=== PATIENT | male | born 1980 ===

== ENCOUNTER 2018-05-12 18:51 | Emergency (ER) | payer SELFPAY ==
[2018-05-12 18:59] VITALS: RESP 16
--- NOTE | 2018-05-12 18:59 | C.PDOC ---
History Of Present Illness 37 year old male presents to the ED complaining of intermittent headache for 2 days. Headache is gradual in onset, circumferential and vice-like. Also reports he has been unable to sleep for the last 2 nights secondary to increased stress in his life. Has had increased anxiety because of family and work issues. Associated left sided neck pain. 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 Has not taken any medication for pain. Denies any SI, HI, hallucinations, nausea, vomiting, weakness, numbness, fever, chills, vision changes, dizziness, abdominal pain, trauma/injury, or any other associated symptoms. Denies history of hypertension or history of similar headaches in the past. Time Seen by Provider: 05/12/18 18:59 Chief Complaint (Nursing): Headache History Per: Patient History/Exam Limitations: no limitations Onset/Duration Of Symptoms: Days (2) Current Symptoms Are (Timing): Still Present Associated Symptoms: Blurred Vision. denies: Nausea, Vomiting Past Medical History Reviewed: Historical Data, Nursing Documentation, Vital Signs Vital Signs: Last Vital Signs Temp 98 F 05/12/18 18:54 Pulse 83 05/12/18 18:54 Resp 16 05/12/18 18:54 BP 155/100 H 05/12/18 18:54 Pulse Ox 98 05/12/18 18:54 - Medical History PMH: No Chronic Diseases Surgical History: No Surg Hx Family History: States: No Known Family Hx - Social History Hx Tobacco Use: No Hx Alcohol Use: Yes Hx Substance Use: No - Immunization History Hx Tetanus Toxoid Vaccination: No Hx Influenza Vaccination: No Hx Pneumococcal Vaccination: No Review Of Systems Except As Marked, All Systems Reviewed And Found Negative. Constitutional: Negative for: Fever, Chills Eyes: Negative for: Vision Change ENT: Negative for: Throat Pain, Throat Swelling Cardiovascular: Negative for: Chest Pain, Palpitations, Light Headedness Respiratory: Negative for: Cough, Shortness of Breath Gastrointestinal: Negative for: Nausea, Vomiting, Abdominal Pain Musculoskeletal: Positive for: Neck Pain. Negative for: Back Pain Skin: Negative for: Rash, Bruising Neurological: Positive for: Headache. Negative for: Weakness, Numbness, Seizures, Dizziness Physical Exam - Physical Exam Appears: Well, Non-toxic, No Acute Distress Skin: Normal Color, Warm, Dry Head: Atraumatic, Normacephalic Eye(s): bilateral: Normal Inspection, PERRL, EOMI Ear(s): Bilateral: Normal Nose: Normal Oral Mucosa: Moist Throat: Normal, No Erythema, No Exudate Neck: Normal, Normal ROM, No Decreased ROM, No Midline Cervical Tenderness, Paracervical Tenderness (left sided with tenderness and spasm), Supple Lymphatic: Normal Exam Chest: Symmetrical Cardiovascular: Rhythm Regular Respiratory: Normal Breath Sounds, No Rales, No Rhonchi, No Wheezing Gastrointestinal/Abdominal: Soft, No Tenderness Back: Normal Inspection, No Vertebral Tenderness, No Paraspinal Tenderness Extremity: Normal ROM, Capillary Refill (<2s) Extremity: Bilateral: Atraumatic, Normal Color And Temperature, Normal ROM Pulses: Left Radial: Normal, Right Radial: Normal Neurological/Psych: Oriented x3, Normal Speech, Normal Cognition, Normal Cranial Nerves, No Cerebellar Signs, Normal Motor, Normal Sensation Gait: Steady ED Course And Treatment O2 Sat by Pulse Oximetry: 98 (RA) Pulse Ox Interpretation: Normal - CT Scan/US CT HEAD Other Rad Studies (CT/US): Read By Radiologist, Radiology Report Reviewed CT/US Interpretation: Name:EDWIN SONI Exam Date:May 12, 2018 7:37:04 PM EST. Modality Type:CT. Description:CT - BRAIN. Gender:M Laterality:Not applicable. :81 Referring Physician:JIM SPARKS PA-C. EXAM: CT Head without Intravenous Contrast. CLINICAL HISTORY: Headache. TECHNIQUE: Axial computed tomography images of the head/brain without intravenous contrast. 0.00 mGy-cm. COMPARISON: None provided. FINDINGS: BRAIN. No acute intraparenchymal hemorrhage. No mass lesion. No CT evidence for acute territorial infarct. No midline shift or extra- axial collections. VENTRICLES: No hydrocephalus. ORBITS: The orbits are unremarkable. SINUSES AND MASTOIDS: The paranasal sinuses and mastoid air cells are clear. BONES: No fracture. SOFT TISSUES: Unremarkable. IMPRESSION: No acute intracranial abnormality. . Electronically signed on May 12, 2018 8:12:18 PM EST by: Gustavo Haddad M.D., Certified by [facility], Diagnostic Radiology. Medical Decision Making Medical Decision Making: Plan - CT Head - Tylenol 975mg PO On initial exam, patient appears uncomfortable but in no acute distress. No focal neurological deficits. Will get CT head secondary to no history of prior headache and hypertension on arrival. Scribe Yadira translated to ensure patient understanding. Imaging reviewed, CT head negative for intracranial pathology. On reeval, patient reports feeling better and notes headache has subsided. Pt is asking for medication to help him sleep. Will give referral to mental health center secondary to anxiety, and melatonin for sleep. BP has improved sign ificantly, returned to normal after treatment of patient's pain. Diagnostic testing results and plan of care discussed with patient. Strict instructions given regarding prescription use, importance of followup, and signs/symptoms to return to ER including vision changes, dizziness, N/V, fever, neck pain/stiffness, or any other new/worsening symptoms. Pt verbalized understanding of discussion. Patient is A&Ox3, ambulating with steady gait, with vital signs stable for discharge. Disposition - Disposition Referrals: [facility] [Outside] [facility] [Outside] Jesus Manuel Parker MD [Staff Provider] - Disposition: HOME/ ROUTINE Disposition Time: 20:15 Condition: IMPROVED Additional Instructions: Melatonina 30min antes de acostarse diariamente segn sea necesario para el insomnio Practica buenos hbitos de sueo Aumentar los fluidos Compresas calientes en la parte posterior del dashawn. Seguimiento con neurologa dentro de 2 escobedo para cefalea. Seguimiento con clnica de carmelal mental dentro de 2 escobedo por ansiedad. Seguimiento con el mdico de cabecera o la clnica dentro de los 2 escobedo para el control de la presin arterial Regrese a la vandana de emergencias con cualquier sntoma nuevo o que empeore Prescriptions: Acetaminophen/Butalbital/Caf [Fioricet] 1 tab PO Q6 PRN #28 tab PRN Reason: Headache Melatonin 5 mg PO HS PRN #30 capsule PRN Reason: Insomnia Instructions: High Blood Pressure in Adults, Headache, Adult (DC), Insomnia (DC), Tips for Getting Better Sleep Forms: Gen Discharge Inst Georgian, Gamida Cell (Georgian), Work Excuse Print Language: MOZAMBICAN - Clinical Impression Clinical Impression: Headache, Insomnia, Muscle spasm - PA / ORDERING BOX OPERATOR / Resident Statement MD/DO has reviewed & agrees with the documentation as recorded. - Scribe Statement The provider has reviewed the documentation as recorded by the Scribe Delilah Lowe All medical record entries made by the Chayito were at my direction and personally dictated by me. I have reviewed the chart and agree that the record accurately reflects my personal performance of the history, physical exam, medical decision making, and the department course for this patient. I have also personally directed, reviewed, and agree with the discharge instructions and disposition.
[2018-05-12 20:10] VITALS: O2SAT 98
[2018-05-12 20:26] VITALS: BP 119/80; PULSE 83; TEMP 8.5
--- NOTE | 2018-05-13 13:17 | CT ---
Date of service: 05/12/2018 PROCEDURE: CT HEAD WITHOUT CONTRAST. HISTORY: headache COMPARISON: None available. TECHNIQUE: Axial computed tomography images were obtained through the head/brain without intravenous contrast. Radiation dose: Total exam DLP = 1106.76 mGy-cm. This CT exam was performed using one or more of the following dose reduction techniques: Automated exposure control, adjustment of the mA and/or kV according to patient size, and/or use of iterative reconstruction technique. FINDINGS: HEMORRHAGE: No intracranial hemorrhage. BRAIN: Normal mahmood-white matter differentiation and density are appreciated throughout the cerebrum and cerebellum with the brainstem appearing unremarkable as well. There is no mass effect. There is no suspicious extra-axial fluid collection and the midline brain anatomy appears diffusely unremarkable. VENTRICLES: Unremarkable. No hydrocephalus. CALVARIUM: Unremarkable. PARANASAL SINUSES: Unremarkable as visualized. No significant inflammatory changes. MASTOID AIR CELLS: Unremarkable as visualized. No inflammatory changes. OTHER FINDINGS: None. IMPRESSION: Unremarkable unenhanced head CT. Concordant preliminary report from Terri, 05/12/2018, 8:12 p.m..
== END 2018-05-12 20:25 | disposition home or self-care (01) ==
LOC: C.ER 18:51
DX: R51 Headache (principal); G47.00 Insomnia, unspecified; M62.838 Other muscle spasm